=== PATIENT | male | born 1995 | race Two or more races ===

== ENCOUNTER 2018-03-14 17:25 | Inpatient (IN) | payer MEDICAID ==
[~2018-03-14] VITALS: Ht 182.9 cm; Wt 79.0 kg
[2018-03-14] MEDS ORDERED: NALOXONE HCL 0.4 MG/ML VIAL IV ONE (18:00)
[2018-03-14 18:42] LABS: Basophils # (auto) 0 uL; Basophils % (auto) 0.3 % (0.0-2.0); Eosinophils # (auto) 0 uL; Eosinophils % (auto) 0.3 % (0.0-7.0); Hematocrit 39.4 % (41.0-53.0); Hemoglobin 12.5 g/dL (13.5-17.5); Lymphocytes # (auto) 1.8 uL; Lymphocytes % (auto) 17.3 % (10.0-50.0); Mean Corpuscular Hemoglobin 29.4 pg (28.0-32.0); Mean Corpuscular Hgb Conc. 31.7 g/dL (32.0-36.0); Mean Corpuscular Volume 92.8 fL (80.0-100.0); Monocytes # (auto) 1.4 uL; Monocytes % (auto) 14.1 % (0.0-12.0); Neutrophils # (auto) 6.9 uL; Nucleated Red Blood Cells % 0.1 %; Platelet Count (auto) 311 10^3/uL (140-450); Red Blood Cells 4.24 10^6/uL (4.5-5.90); Red Cell Distribution Width 18.6 % (11.8-14.3); White Blood Cell 10.1 10^3/uL (4.4-10.8)
[2018-03-14 18:54] LABS: Albumin 3.6 g/dL (3.4-5.0); Anion Gap 17 (5-15); Blood Alcohol < 3.0 mg/dL (0-5); Blood Urea Nitrogen 35 mg/dL (7-18); Calcium 8.4 mg/dL (8.5-10.1); Carbon Dioxide 22 mmol/L (21-32); Chloride 108 mmol/L (98-107); Glucose 102 mg/dL (74-106); Magnesium 3.1 mg/dL (1.6-2.6); Potassium 4.4 mmol/L (3.5-5.1); Sodium 147 mmol/L (136-145)
[2018-03-14 18:59] LABS: Alanine Aminotransferase 124 U/L (16-61); Alkaline Phosphatase 342 U/L (45-117); Aspartate Aminotransferase 135 U/L (15-37); Bilirubin, Total 0.4 mg/dL (0.2-1.0); GFR African American 51 mL/min; GFR Non-African American 42 mL/min; Total Protein 7.2 g/dL (6.4-8.2)
[2018-03-14] MEDS ORDERED: SODIUM BICARBONATE 8.4 % INJ 50ML VIAL IV ONE (19:00)
[2018-03-14] MEDS ORDERED: SODIUM CHLORIDE 0.9% 1,000 ML IV ONE (20:00)
[2018-03-14] MEDS ORDERED: SUCCINYLCHOLINE CHLORIDE 20 MG/ML 10ML VIAL IV ONE (20:15)
[2018-03-14] MEDS ORDERED: ETOMIDATE (2MG/ML) 20ML VIAL IV ONE (20:15)
[2018-03-14] MEDS ORDERED: cefTRIAXone 1GM/50ML D5W 50 ML IV ONE (20:30)
[2018-03-14] MEDS ORDERED: MIDAZOLAM DRIP 50 mg/50mL 50 ML IV ONE (20:50)
[2018-03-14] MEDS ORDERED: PROPOFOL 100 ML IV ONE (20:51)
[2018-03-14] MEDS ORDERED: MIDAZOLAM DRIP 50 mg/50mL 50 ML IV SCH (20:55)
[2018-03-14 21:17] VITALS: BP 87/66
[2018-03-14 21:33] LABS: Alcohol, Urine < 3.0 mg/dL (0-5); Amphetamine Screen, Urine POSITIVE (NEGATIVE); Barbiturate Scree,Urine NEGATIVE (NEGATIVE); Benzodiazephine Screen, Urine NEGATIVE (NEGATIVE); Cannabinoid Screen, Urine POSITIVE (NEGATIVE); Opiate Scree,Urine POSITIVE (NEGATIVE); Phencyclidine Screen, Urine NEGATIVE (NEGATIVE)
[2018-03-14 21:40] LABS: Cocaine Screen, Urine POSITIVE (NEGATIVE)
[2018-03-14 22:00] VITALS: BP 106/63
[2018-03-14] MEDS ORDERED: SODIUM CHLORIDE 0.9% 1,000 ML IV SCH (23:13)
[2018-03-14] MEDS ORDERED: ACETAMINOPHEN 650 MG RECT SUPP PR PRN (23:15)
[2018-03-14 23:37] LABS: Lactic Acid w/Reflex 2.6 mmol/L (0.4-2.0)
[2018-03-15] VITALS (94 sets, daily range): BP systolic 91–126; BP diastolic 38–80
[2018-03-15 03:23] LABS: Albumin 3.2 g/dL (3.4-5.0); Potassium 4.5 mmol/L (3.5-5.1)
[2018-03-15 03:26] LABS: Bilirubin, Total 0.4 mg/dL (0.2-1.0); Total Protein 6.3 g/dL (6.4-8.2)
[2018-03-15 03:36] LABS: Basophils # (auto) 0 uL; Basophils % (auto) 0.1 % (0.0-2.0); Eosinophils # (auto) 0 uL; Hematocrit 39.4 % (41.0-53.0); Hemoglobin 12.7 g/dL (13.5-17.5); Lymphocytes # (auto) 1.5 uL; Lymphocytes % (auto) 26.4 % (10.0-50.0); Mean Corpuscular Hemoglobin 28.7 pg (28.0-32.0); Mean Corpuscular Hgb Conc. 32.2 g/dL (32.0-36.0); Monocytes # (auto) 0.6 uL; Monocytes % (auto) 10.8 % (0.0-12.0); Neutrophils # (auto) 3.5 uL; Neutrophils % (auto) 62.7 % (37.0-80.0); Nucleated Red Blood Cells % 0.1 %; Platelet Count (auto) 203 10^3/uL (140-450); Red Blood Cells 4.43 10^6/uL (4.5-5.90); Red Cell Distribution Width 17.7 % (11.8-14.3); White Blood Cell 5.6 10^3/uL (4.4-10.8)
[2018-03-15] MEDS: MIDAZOLAM DRIP 50 mg/50mL 50 ML IV SCH ×5 (06:15→22:16)
[2018-03-15] MEDS: PROPOFOL 100 ML IV SCH ×2 (08:02→17:58)
[2018-03-15 08:24] LABS: Urine Bacteria NONE SEEN /hpf (None Seen); Urine Blood TRACE /uL (Negative); Urine Specific Gravity 1.022 (1.001-1.035); Urine WBC 1 /hpf (0 - 3)
[2018-03-15] MEDS: FAMOTIDINE (10MG/ML) 2ML VL IV SCH ×2 (09:34→22:08)
[2018-03-15] MEDS: SOD CHL 0.45% 1,000 ML IV SCH ×2 (09:35→18:00)
[2018-03-15] MEDS ORDERED: ENOXAPARIN SOD 30 MG/0.3 ML SYRINGE SC SCH (10:00)
[2018-03-15] MEDS ORDERED: ENOXAPARIN SOD 40 MG/0.4 ML SYRINGE SC SCH (10:00)
[2018-03-15] MEDS ORDERED: Jevity 1.2 Cal/Fiber 1 Liter GT SCH (12:00)
[2018-03-15] MEDS ORDERED: PIPERACILLIN-TAZOB 3.375GM 100 ML IV ONE (12:30)
[2018-03-15] MEDS: fentaNYL Drip 2500mCg/250mlNS 250 ML IV SCH (13:54)
[2018-03-15] MEDS: PIPERACILLIN-TAZOB 3.375GM 100 ML IV SCH (22:08)
[2018-03-16] VITALS (106 sets, daily range): BP systolic 90–121; BP diastolic 41–73
[2018-03-16] MEDS: MIDAZOLAM DRIP 50 mg/50mL 50 ML IV SCH ×6 (02:17→22:01)
[2018-03-16] MEDS: fentaNYL Drip 2500mCg/250mlNS 250 ML IV SCH ×2 (03:10→17:32)
[2018-03-16] MEDS: SOD CHL 0.45% 1,000 ML IV SCH ×3 (04:00→22:00)
[2018-03-16 04:02] LABS: Basophils # (auto) 0 uL; Basophils % (auto) 0.4 % (0.0-2.0); Eosinophils # (auto) 0.2 uL; Eosinophils % (auto) 2.4 % (0.0-7.0); Hematocrit 32.6 % (41.0-53.0); Lymphocytes # (auto) 1.8 uL; Lymphocytes % (auto) 27.4 % (10.0-50.0); Mean Corpuscular Hemoglobin 29.6 pg (28.0-32.0); Mean Corpuscular Hgb Conc. 33.7 g/dL (32.0-36.0); Mean Corpuscular Volume 87.8 fL (80.0-100.0); Monocytes # (auto) 0.5 uL; Monocytes % (auto) 7.6 % (0.0-12.0); Neutrophils % (auto) 62.2 % (37.0-80.0); Platelet Count (auto) 157 10^3/uL (140-450); Red Blood Cells 3.72 10^6/uL (4.5-5.90); Red Cell Distribution Width 17.9 % (11.8-14.3); White Blood Cell 6.5 10^3/uL (4.4-10.8)
[2018-03-16 04:21] LABS: Albumin 2.6 g/dL (3.4-5.0); Calcium 7.9 mg/dL (8.5-10.1); Potassium 3.2 mmol/L (3.5-5.1)
[2018-03-16 04:24] LABS: BUN/Creatinine Ratio 21.4; Bilirubin, Total 0.4 mg/dL (0.2-1.0); Total Protein 5.5 g/dL (6.4-8.2)
[2018-03-16] MEDS: PIPERACILLIN-TAZOB 3.375GM 100 ML IV SCH ×3 (05:48→17:32)
[2018-03-16] MEDS ORDERED: VANCOMYCIN PER PHARMACY 0 MG IV SCH (09:30)
[2018-03-16] MEDS: AZITHROMYCIN 500MG/ 250ML 250 ML IV SCH (09:44)
[2018-03-16] MEDS: PANTOPRAZOLE 40 MG/10 ML VIAL IV SCH ×2 (09:44→22:01)
[2018-03-16] MEDS ORDERED: POTASSIUM EFFERVESENT TAB 25 MEQ GT ONE (10:30)
[2018-03-16 10:36] LABS: Hematocrit 32.5 % (41.0-53.0)
[2018-03-16] MEDS: VANCOMYCIN 1,250 MG in D5W 5% 250 ML IV SCH ×2 (13:58→22:01)
[2018-03-16] MEDS: PROPOFOL 100 ML IV SCH ×2 (14:32→17:32)
[2018-03-16 15:57] LABS: Hematocrit 32.1 % (41.0-53.0); Hemoglobin 10.9 g/dL (13.5-17.5)
[2018-03-16 22:50] LABS: Hematocrit 31.9 % (41.0-53.0); Hemoglobin 10.6 g/dL (13.5-17.5)
[2018-03-17] VITALS (105 sets, daily range): BP systolic 91–124; BP diastolic 35–77
[2018-03-17] MEDS: PIPERACILLIN-TAZOB 3.375GM 100 ML IV SCH ×4 (00:15→17:59)
[2018-03-17] MEDS: MIDAZOLAM DRIP 50 mg/50mL 50 ML IV SCH ×6 (02:40→21:40)
[2018-03-17 04:09] LABS: Basophils # (auto) 0 uL; Basophils % (auto) 0.6 % (0.0-2.0); Eosinophils # (auto) 0.2 uL; Eosinophils % (auto) 2.7 % (0.0-7.0); Hematocrit 31.3 % (41.0-53.0); Hemoglobin 10.5 g/dL (13.5-17.5); Lymphocytes # (auto) 1.6 uL; Lymphocytes % (auto) 24.9 % (10.0-50.0); Mean Corpuscular Hemoglobin 29.6 pg (28.0-32.0); Mean Corpuscular Hgb Conc. 33.6 g/dL (32.0-36.0); Mean Corpuscular Volume 88.1 fL (80.0-100.0); Monocytes # (auto) 0.6 uL; Neutrophils # (auto) 4.1 uL; Neutrophils % (auto) 62.8 % (37.0-80.0); Platelet Count (auto) 187 10^3/uL (140-450); Red Blood Cells 3.55 10^6/uL (4.5-5.90); Red Cell Distribution Width 17.4 % (11.8-14.3); White Blood Cell 6.6 10^3/uL (4.4-10.8)
[2018-03-17 04:23] LABS: Albumin 2.3 g/dL (3.4-5.0); BUN/Creatinine Ratio 10.8; Calcium 7.9 mg/dL (8.5-10.1); Potassium 3.4 mmol/L (3.5-5.1)
[2018-03-17 04:26] LABS: Bilirubin, Total 0.3 mg/dL (0.2-1.0); Total Protein 5.3 g/dL (6.4-8.2)
[2018-03-17] MEDS: VANCOMYCIN 1,250 MG in D5W 5% 250 ML IV SCH ×3 (06:10→22:05)
[2018-03-17] MEDS: fentaNYL Drip 2500mCg/250mlNS 250 ML IV SCH (09:03)
[2018-03-17] MEDS: AZITHROMYCIN 500MG/ 250ML 250 ML IV SCH (09:59)
[2018-03-17] MEDS: PANTOPRAZOLE 40 MG/10 ML VIAL IV SCH ×2 (09:59→22:05)
[2018-03-17] MEDS: SOD CHL 0.45% 1,000 ML IV SCH (10:00)
[2018-03-17 10:54] LABS: INR 0.89 (0.9-1.15); Prothrombin Time 9.6 sec (9.27-12.13)
[2018-03-17] MEDS: METHADONE HCL 10 MG TAB PO SCH ×2 (13:45→22:03)
[2018-03-17] MEDS ORDERED: Jevity 1.2 Cal/Fiber 1 Liter GT SCH (14:40)
[2018-03-17] MEDS ORDERED: LIDOCAINE 1% (LOCAL ANESTH.) PF 5ml SDV ID ONE (14:45)
[2018-03-17 16:17] LABS: Hepatitis A Ab IgM Negative; Hepatitis B Core IgM Negative
[2018-03-17 16:20] LABS: Hepatitis C Antibody Positive (Negative)
[2018-03-17] MEDS: SODIUM CHLOR 0.9% PF (SALINE LOCK) 10ML VIAL/SYR IV SCH (22:01)
[2018-03-18] VITALS (100 sets, daily range): BP systolic 91–137; BP diastolic 41–86
[2018-03-18] MEDS: PIPERACILLIN-TAZOB 3.375GM 100 ML IV SCH ×5 (00:03→23:45)
[2018-03-18] MEDS: MIDAZOLAM DRIP 50 mg/50mL 50 ML IV SCH (03:07)
[2018-03-18 03:57] LABS: Basophils # (auto) 0 uL; Basophils % (auto) 0.7 % (0.0-2.0); Eosinophils # (auto) 0.2 uL; Eosinophils % (auto) 3.4 % (0.0-7.0); Hematocrit 25.9 % (41.0-53.0); Hemoglobin 8.9 g/dL (13.5-17.5); Lymphocytes # (auto) 1.2 uL; Lymphocytes % (auto) 25.8 % (10.0-50.0); Mean Corpuscular Hemoglobin 30.6 pg (28.0-32.0); Mean Corpuscular Hgb Conc. 34.5 g/dL (32.0-36.0); Mean Corpuscular Volume 88.7 fL (80.0-100.0); Monocytes # (auto) 0.3 uL; Monocytes % (auto) 7.2 % (0.0-12.0); Neutrophils # (auto) 2.9 uL; Neutrophils % (auto) 62.9 % (37.0-80.0); Platelet Count (auto) 164 10^3/uL (140-450); Red Blood Cells 2.92 10^6/uL (4.5-5.90); Red Cell Distribution Width 17.6 % (11.8-14.3); White Blood Cell 4.5 10^3/uL (4.4-10.8)
[2018-03-18 04:05] LABS: Albumin 1.9 g/dL (3.4-5.0); Calcium 6.3 mg/dL (8.5-10.1)
[2018-03-18 04:08] LABS: BUN/Creatinine Ratio 11.9; Bilirubin, Total 0.4 mg/dL (0.2-1.0); Total Protein 4.6 g/dL (6.4-8.2)
[2018-03-18 04:16] LABS: Potassium 2.8 mmol/L (3.5-5.1)
[2018-03-18] MEDS: PROPOFOL 100 ML IV SCH ×2 (04:24→15:56)
[2018-03-18] MEDS: POTASSIUM CHL 20MEQ/100ML 100 ML IV SCH ×4 (05:00→12:57)
[2018-03-18] MEDS: VANCOMYCIN 1,250 MG in D5W 5% 250 ML IV SCH ×3 (06:17→22:04)
[2018-03-18] MEDS: METHADONE HCL 10 MG TAB PO SCH ×3 (06:18→22:06)
[2018-03-18] MEDS: fentaNYL Drip 2500mCg/250mlNS 250 ML IV SCH (07:30)
[2018-03-18 09:20] LABS: Hepatitis B Surface Antigen Negative (Negative)
[2018-03-18] MEDS: PANTOPRAZOLE 40 MG/10 ML VIAL IV SCH ×2 (10:04→22:06)
[2018-03-18] MEDS: AZITHROMYCIN 500MG/ 250ML 250 ML IV SCH (10:04)
[2018-03-18] MEDS: SODIUM CHLOR 0.9% PF (SALINE LOCK) 10ML VIAL/SYR IV SCH ×2 (10:05→22:06)
[2018-03-18] MEDS ORDERED: FUROSEMIDE 20 MG/2 ML VIAL IV ONE (11:15)
[2018-03-18] MEDS ORDERED: POTASSIUM EFFERVESENT TAB 25 MEQ GT ONE (11:15)
[2018-03-19] VITALS (59 sets, daily range): BP systolic 103–155; BP diastolic 55–104
[2018-03-19] MEDS: PROPOFOL 100 ML IV SCH (00:54)
[2018-03-19 03:43] LABS: Basophils # (auto) 0 uL; Basophils % (auto) 0.3 % (0.0-2.0); Eosinophils # (auto) 0.2 uL; Hematocrit 33.9 % (41.0-53.0); Hemoglobin 11.3 g/dL (13.5-17.5); Lymphocytes # (auto) 1.2 uL; Lymphocytes % (auto) 19.1 % (10.0-50.0); Mean Corpuscular Hemoglobin 29.2 pg (28.0-32.0); Mean Corpuscular Hgb Conc. 33.2 g/dL (32.0-36.0); Monocytes # (auto) 0.7 uL; Monocytes % (auto) 10.8 % (0.0-12.0); Neutrophils # (auto) 4.2 uL; Neutrophils % (auto) 66.8 % (37.0-80.0); Platelet Count (auto) 261 10^3/uL (140-450); Red Blood Cells 3.86 10^6/uL (4.5-5.90); Red Cell Distribution Width 17.1 % (11.8-14.3); White Blood Cell 6.3 10^3/uL (4.4-10.8)
[2018-03-19 04:00] LABS: Calcium 8.5 mg/dL (8.5-10.1); Magnesium 1.9 mg/dL (1.6-2.6); Potassium 4.1 mmol/L (3.5-5.1)
[2018-03-19 04:03] LABS: BUN/Creatinine Ratio 9.9
[2018-03-19] MEDS: VANCOMYCIN 1,250 MG in D5W 5% 250 ML IV SCH ×3 (05:33→21:47)
[2018-03-19] MEDS: METHADONE HCL 10 MG TAB PO SCH ×3 (05:36→21:47)
[2018-03-19] MEDS: PIPERACILLIN-TAZOB 3.375GM 100 ML IV SCH ×3 (07:27→17:33)
[2018-03-19] MEDS: fentaNYL Drip 2500mCg/250mlNS 250 ML IV SCH (08:28)
[2018-03-19] MEDS: PANTOPRAZOLE 40 MG/10 ML VIAL IV SCH ×2 (09:39→21:47)
[2018-03-19] MEDS: SODIUM CHLOR 0.9% PF (SALINE LOCK) 10ML VIAL/SYR IV SCH ×2 (09:39→21:47)
[2018-03-19] MEDS: AZITHROMYCIN 500MG/ 250ML 250 ML IV SCH (09:39)
[2018-03-19] MEDS: DEXMEDETOMIDINE HCL 400 MCG in D5W 5% 96 ML IV SCH (10:27)
[2018-03-19] MEDS ORDERED: NICOTINE 21MG/24 HR TOPICAL PATCH TD ONE (17:45)
[2018-03-19] MEDS: ONDANSETRON HCL 4 MG/2 ML VIAL IV PRN (18:09)
[2018-03-20] VITALS (18 sets, daily range): BP systolic 90–131; BP diastolic 30–84
[2018-03-20] MEDS: PIPERACILLIN-TAZOB 3.375GM 100 ML IV SCH ×2 (00:11→06:45)
[2018-03-20] MEDS: ONDANSETRON HCL 4 MG/2 ML VIAL IV PRN ×3 (00:12→14:50)
[2018-03-20 03:53] LABS: Calcium 8.7 mg/dL (8.5-10.1); Potassium 3.9 mmol/L (3.5-5.1)
[2018-03-20 03:55] LABS: BUN/Creatinine Ratio 15.4
[2018-03-20] MEDS: VANCOMYCIN 1,250 MG in D5W 5% 250 ML IV SCH (05:22)
[2018-03-20] MEDS: METHADONE HCL 10 MG TAB PO SCH ×4 (06:00→21:27)
[2018-03-20] MEDS: PROPOFOL 100 ML IV SCH (07:50)
[2018-03-20] MEDS: DEXMEDETOMIDINE HCL 400 MCG in D5W 5% 96 ML IV SCH (08:24)
[2018-03-20] MEDS: PANTOPRAZOLE 40 MG/10 ML VIAL IV SCH (10:26)
[2018-03-20] MEDS: SODIUM CHLOR 0.9% PF (SALINE LOCK) 10ML VIAL/SYR IV SCH ×2 (10:27→21:26)
[2018-03-20] MEDS: AZITHROMYCIN 500MG/ 250ML 250 ML IV SCH (10:27)
[2018-03-20] MEDS: MULTIPLE VITAMIN TAB PO SCH ×2 (12:12→14:47)
[2018-03-20] MEDS: PANTOPRAZOLE 40 MG TAB PO SCH (12:12)
[2018-03-20] MEDS: LEVOFLOXACIN 500MG 100 ML IV SCH (12:31)
[2018-03-20] MEDS ORDERED: MULTTAB99 PO (15:02)
[2018-03-20] MEDS ORDERED: PROMETHAZINE HCL 25 MG/ML 1ML IV PRN (15:15)
[2018-03-21 05:00] VITALS: BP 118/73
[2018-03-21] MEDS: METHADONE HCL 10 MG TAB PO SCH ×3 (05:38→21:34)
[2018-03-21 08:46] VITALS: BP 120/81
[2018-03-21] MEDS: MULTIPLE VITAMIN TAB PO SCH (09:24)
[2018-03-21] MEDS: PANTOPRAZOLE 40 MG TAB PO SCH (09:24)
[2018-03-21] MEDS: LEVOFLOXACIN 500MG 100 ML IV SCH (09:24)
[2018-03-21] MEDS: SODIUM CHLOR 0.9% PF (SALINE LOCK) 10ML VIAL/SYR IV SCH ×2 (09:24→21:34)
[2018-03-21] MEDS: NICOTINE 14 MG/24HR TOPICAL PATCH TD SCH (10:34)
[2018-03-21 13:12] VITALS: BP 106/70
[2018-03-21 14:00] LABS: Alcohol, Urine < 3.0 mg/dL (0-5); Amphetamine Screen, Urine NEGATIVE (NEGATIVE); Barbiturate Scree,Urine NEGATIVE (NEGATIVE); Benzodiazephine Screen, Urine POSITIVE (NEGATIVE); Cannabinoid Screen, Urine NEGATIVE (NEGATIVE); Cocaine Screen, Urine NEGATIVE (NEGATIVE); Opiate Scree,Urine NEGATIVE (NEGATIVE); Phencyclidine Screen, Urine NEGATIVE (NEGATIVE)
[2018-03-21] MEDS: SODIUM CHLORIDE 0.9% 1,000 ML IV SCH ×2 (14:23→20:15)
[2018-03-21] MEDS ORDERED: ENOXAPARIN SOD 40 MG/0.4 ML SYRINGE SC ONE (16:00)
[2018-03-21 17:15] VITALS: BP 120/71
[2018-03-21 21:41] VITALS: BP 119/70
[2018-03-22] MEDS: SODIUM CHLORIDE 0.9% 1,000 ML IV SCH (04:15)
[2018-03-22 05:00] VITALS: BP 120/72
[2018-03-22] MEDS: METHADONE HCL 10 MG TAB PO SCH (05:27)
[2018-03-22 06:55] LABS: Basophils # (auto) 0.1 uL; Basophils % (auto) 0.8 % (0.0-2.0); Eosinophils # (auto) 0.3 uL; Hematocrit 34.2 % (41.0-53.0); Hemoglobin 11.6 g/dL (13.5-17.5); Lymphocytes # (auto) 2.7 uL; Lymphocytes % (auto) 43.4 % (10.0-50.0); Mean Corpuscular Hemoglobin 29.8 pg (28.0-32.0); Mean Corpuscular Hgb Conc. 33.9 g/dL (32.0-36.0); Mean Corpuscular Volume 87.8 fL (80.0-100.0); Monocytes # (auto) 0.9 uL; Monocytes % (auto) 14.4 % (0.0-12.0); Neutrophils # (auto) 2.2 uL; Neutrophils % (auto) 36.4 % (37.0-80.0); Platelet Count (auto) 335 10^3/uL (140-450); Red Cell Distribution Width 16.4 % (11.8-14.3); White Blood Cell 6.1 10^3/uL (4.4-10.8)
[2018-03-22 07:12] LABS: Potassium 3.8 mmol/L (3.5-5.1)
[2018-03-22 07:20] LABS: BUN/Creatinine Ratio 14.8; Bilirubin, Total 0.3 mg/dL (0.2-1.0); Calcium 8.9 mg/dL (8.5-10.1); Total Protein 6.6 g/dL (6.4-8.2)
[2018-03-22] MEDS ORDERED: ALBUTEROL SULF 2.5 MG/0.5ML(0.5%) NEB SOLN NEB PRN (08:45)
[2018-03-22 09:32] VITALS: BP 133/77
[2018-03-22] MEDS ORDERED: ENOXAPARIN SOD 40 MG/0.4 ML SYRINGE SC SCH (10:00)
[2018-03-22] MEDS: PANTOPRAZOLE 40 MG TAB PO SCH (10:49)
[2018-03-22] MEDS: LEVOFLOXACIN 500MG 100 ML IV SCH (10:49)
[2018-03-22] MEDS: MULTIPLE VITAMIN TAB PO SCH (10:49)
[2018-03-22] MEDS: NICOTINE 14 MG/24HR TOPICAL PATCH TD SCH (10:50)
[2018-03-22] MEDS: SODIUM CHLOR 0.9% PF (SALINE LOCK) 10ML VIAL/SYR IV SCH (10:58)
[2018-03-22 12:50] LABS: Urine Bacteria NONE SEEN /hpf (None Seen); Urine Blood Negative /uL (Negative); Urine Specific Gravity 1.007 (1.001-1.035); Urine WBC 1 /hpf (0 - 3)
[2018-03-22 13:39] VITALS: BP 127/77
[2018-03-22] MEDS ORDERED: METHADONE HCL 10 MG TAB PO SCH (14:00)
[2018-03-22 15:54] LABS: Alcohol, Urine < 3.0 mg/dL (0-5); Amphetamine Screen, Urine NEGATIVE (NEGATIVE); Barbiturate Scree,Urine NEGATIVE (NEGATIVE); Benzodiazephine Screen, Urine POSITIVE (NEGATIVE); Cannabinoid Screen, Urine NEGATIVE (NEGATIVE); Cocaine Screen, Urine NEGATIVE (NEGATIVE); Opiate Scree,Urine NEGATIVE (NEGATIVE); Phencyclidine Screen, Urine NEGATIVE (NEGATIVE)
[2018-03-22] MEDS ORDERED: Ensure Enlive Chocolate 8oz Bottle PO SCH (18:00)
== END 2018-03-22 19:50 | disposition left against medical advice (07) | DRG 720 ==
LOC: EDBD 17:25 → ER 17:32 → OVERFLOW 23:40 → ICU WEST 03-15 01:56 → WEST WING 03-20 16:05 → TELE-WESTW 03-21 18:06
PROVIDERS: ADMIT Emergency Medicine; ATTEND Internal Medicine
PROC: 5A1955Z Respiratory Ventilation, Greater than 96 Consecutive Hours (ICD-10-PCS; principal; 2018-03-15)
PROC: 0BH17EZ Insertion of Endotracheal Airway into Trachea, Via Natural or Artificial Opening (ICD-10-PCS; 2018-03-15)
PROC: 02HV33Z Insertion of Infusion Device into Superior Vena Cava, Percutaneous Approach (ICD-10-PCS; 2018-03-17)
DX: A41.9 Sepsis, unspecified organism (principal); J96.00 Acute respiratory failure, unspecified whether with hypoxia or hypercapnia; J69.0 Pneumonitis due to inhalation of food and vomit; N17.0 Acute kidney failure with tubular necrosis; K72.00 Acute and subacute hepatic failure without coma; G92 Toxic encephalopathy; F19.20 Other psychoactive substance dependence, uncomplicated; F17.210 Nicotine dependence, cigarettes, uncomplicated; E87.0 Hyperosmolality and hypernatremia; D64.9 Anemia, unspecified; K72.90 Hepatic failure, unspecified without coma; B19.20 Unspecified viral hepatitis C without hepatic coma; Z59.0 Homelessness; Z71.51 Drug abuse counseling and surveillance of drug abuser; Z53.21 Procedure and treatment not carried out due to patient leaving prior to being seen by health care provider
CPT/HCPCS: 31500; 36415; 36569; 36600; 51702; 70450; 71045; 80048; 80053; 80074; 80202; 80307; 80320; 81001; 82805; 83605; 83735; 85014; 85018; 85025; 85610; 86703; 87040; 87070; 87081; 87205; 92950; 93005; 93306; 93971; 94002; 94003; 94640; 96365; 96366; 96368; 96372; 96375; 97116; 97163; 97530; 99291; A4565; A4618; A6257; C9113; G0378; J0330; J0696; J1956; J2250; J2405; J2543; J2704; J3480; J3490; J7060